=== PATIENT | female | born 1965 | race African-American/Black ===

== ENCOUNTER 2018-04-07 14:08 | Emergency (ER) | payer OTHER ==
[~2018-04-07] VITALS: Ht 162.6 cm; Wt 90.3 kg
[~2018-04-07 14:08] MED LIST: ERYTHROMYCIN E3.5 G1 OPHTHALMIC; HYDROCHLOROTHIA25 M1 PO; IBUPROFEN 600600 M1 PO; IBUPROFEN 800800 MG PO; IRON SUPPLEMEN325 MG PO; LISINOPRIL; NORCO 5-325 TA1 EACH PO
[2018-04-07] MEDS ORDERED: VITAMIN D50000 UNIT PO (14:21)
[2018-04-07] MEDS ORDERED: IBUPROFEN 600600 M1 PO (15:08)
[2018-04-07 15:50] VITALS: BP 167/105
== END 2018-04-07 15:52 | disposition home or self-care (01) ==
LOC: ER 14:08
DX: S90.121A Contusion of right lesser toe(s) without damage to nail, initial encounter (principal); I10 Essential (primary) hypertension; W23.0XXA Caught, crushed, jammed, or pinched between moving objects, initial encounter; Y93.89 Activity, other specified; Y92.89 Other specified places as the place of occurrence of the external cause; Y99.8 Other external cause status

== ENCOUNTER 2019-07-19 17:40 | Emergency (ER) | payer OTHER ==
[~2019-07-19] VITALS: Ht 162.6 cm; Wt 86.2 kg
[~2019-07-19 17:40] MED LIST changes: +VITAMIN D50000 UNIT PO
[2019-07-19 18:50] LABS: ABSOLUTE NEUTROPHILS 2.9 thou/uL (1.4-8.2); BASOPHILS 1.1 % (0.0-2.0); EOSINOPHILS 0.9 % (0.0-3.0); HEMOGLOBIN 12.4 gm/dL (12.0-15.0); LYMPHOCYTES 39.1 % (24.0-44.0); MCH 28.3 pg (26.0-34.0); MCHC 32.5 g/dL (28.0-37.0); MCV 87.1 fL (80.0-100.0); MONOCYTES 8.1 % (1.0-8.0); PLATELET COUNT 252 thou/uL (150-400); POLYS 50.8 % (36.0-66.0); RBC 4.37 mil/uL (4.20-5.00); RDW 14.5 % (10.5-14.5); WBC 5.7 thou/uL (4.0-11.0)
[2019-07-19 18:58] LABS: CALCIUM 9.1 mg/dL (8.5-10.1); CREATININE 0.9 mg/dL (0.6-1.0); POTASSIUM 3.9 mmol/L (3.5-5.1)
[2019-07-19 19:04] LABS: ALBUMIN 3.9 g/dL (3.4-5.0); TOTAL BILIRUBIN 0.3 mg/dL (<0.1-1.0); TOTAL PROTEIN 8.1 g/dL (6.4-8.2)
[2019-07-19 19:17] LABS: URINE BILIRUBIN NEGATIVE (Negative); URINE BLOOD NEGATIVE (Negative); URINE CLARITY CLOUDY; URINE COLOR YELLOW; URINE GLUCOSE-RANDOM* NEGATIVE (Negative); URINE KETONES NEGATIVE (Negative); URINE NITRITE-REFLEX NEGATIVE (Negative); URINE PROTEIN (DIPSTICK) NEGATIVE (Negative); URINE SPECIFIC GRAVITY >= 1.030 (1.005-1.035)
[2019-07-19 19:22] LABS: CASTS None Seen /LPF (None Seen); MUCUS 0-3 Light strn/LPF (None Seen); URINE LEUKOCYTES-REFLEX 1+ (Negative); URINE WBC-REFLEX 6-15 Few /HPF (0-5)
[2019-07-19 19:23] LABS: AMORPHOUS URATES Many /LPF (None Seen); BACTERIA-REFLEX None Seen /HPF (None Seen); CRYSTALS None Seen /LPF (None Seen); SQUAMOUS 0-3 Few /LPF (0-3); URINE RBC None Seen /HPF (0-2)
[2019-07-19] MEDS ORDERED: MACROBID 100 M100 M2 PO (21:05)
[2019-07-19 21:17] VITALS: BP 130/91
[2019-07-19] MEDS ORDERED: PHENAZOPYRIDIN200 M2 PO (22:02)
== END 2019-07-19 22:09 | disposition home or self-care (01) ==
LOC: ER 17:40
PROVIDERS: Emergency Medicine
DX: N30.00 Acute cystitis without hematuria (principal); R19.7 Diarrhea, unspecified; I10 Essential (primary) hypertension; Z90.49 Acquired absence of other specified parts of digestive tract

== ENCOUNTER 2019-11-02 12:57 | Emergency (ER) | payer OTHER ==
[~2019-11-02] VITALS: Ht 162.6 cm; Wt 83.9 kg
[~2019-11-02 12:57] MED LIST changes: +MACROBID 100 M100 M2 PO; +PHENAZOPYRIDIN200 M2 PO
[2019-11-02] MEDS ORDERED: LISINOPRIL2.5 MG PO (13:00)
[2019-11-02] MEDS ORDERED: MOBIC7.5 MG PO (13:52)
[2019-11-02 14:04] VITALS: BP 145/78
== END 2019-11-02 14:05 | disposition home or self-care (01) ==
LOC: ER 12:57
DX: S86.812A Strain of other muscle(s) and tendon(s) at lower leg level, left leg, initial encounter (principal); I10 Essential (primary) hypertension; Z90.49 Acquired absence of other specified parts of digestive tract; W18.39XA Other fall on same level, initial encounter; Y93.89 Activity, other specified; Y92.89 Other specified places as the place of occurrence of the external cause; Y99.8 Other external cause status

== ENCOUNTER 2020-08-31 23:06 | Emergency (ER) | payer OTHER ==
[~2020-08-31] VITALS: Ht 162.6 cm; Wt 81.7 kg
[~2020-08-31 23:06] MED LIST changes: +LISINOPRIL2.5 MG PO; +MOBIC7.5 MG PO
[2020-08-31 23:42] LABS: ABSOLUTE NEUTROPHILS 3.1 thou/uL (1.4-8.2); BASOPHILS 0.9 % (0.0-2.0); EOSINOPHILS 1.1 % (0.0-3.0); HEMATOCRIT 37.1 % (37.0-47.0); HEMOGLOBIN 11.9 gm/dL (12.0-15.0); LYMPHOCYTES 40.7 % (24.0-44.0); MCH 28.4 pg (26.0-34.0); MCHC 31.9 g/dL (28.0-37.0); MCV 88.9 fL (80.0-100.0); MONOCYTES 7.2 % (1.0-8.0); PLATELET COUNT 227 thou/uL (150-400); POLYS 50.1 % (36.0-66.0); RBC 4.17 mil/uL (4.20-5.00); RDW 14.9 % (10.5-14.5); WBC 6.1 thou/uL (4.0-11.0)
[2020-08-31 23:51] LABS: ANION GAP 12 mmol/L (7-16); BUN 14 mg/dL (7-18); CALCIUM 9.1 mg/dL (8.5-10.1); CHLORIDE 105 mmol/L (98-107); CO2 26 mmol/L (21-32); CREATININE 0.9 mg/dL (0.6-1.0); GLUCOSE 96 mg/dL (74-106); POTASSIUM 3.4 mmol/L (3.5-5.1); SODIUM 143 mmol/L (136-145)
[2020-08-31 23:57] LABS: TROPONIN-I <0.06 ng/mL (<0.06)
[2020-09-01 02:33] VITALS: BP 141/76
--- NOTE | 2020-09-02 07:48 | EKG ---
[facility] [place] [address] ELECTROCARDIOGRAM REPORT Name: HAYES SANTIAGO Room #: [facility]#: [id number] Admission: 08/31/20 Attend Phys: Discharge: 09/01/20 Date of : 61 Report #: [id number] THIS REPORT FOR: cc: Physician not on staff Physician not on staff Herberth Iverson MD [facility] ~ THIS REPORT FOR: //name// 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
== END 2020-09-01 02:45 | disposition home or self-care (01) ==
LOC: ER 23:06
PROVIDERS: Emergency Medicine
DX: R07.89 Other chest pain (principal); M25.511 Pain in right shoulder; R10.9 Unspecified abdominal pain; I10 Essential (primary) hypertension; Z90.49 Acquired absence of other specified parts of digestive tract; Z79.899 Other long term (current) drug therapy

== ENCOUNTER 2020-09-02 10:45 | Emergency (ER) | payer OTHER ==
[~2020-09-02] VITALS: Ht 162.6 cm; Wt 81.7 kg
[2020-09-02 11:31] LABS: ABSOLUTE NEUTROPHILS 2.5 thou/uL (1.4-8.2); EOSINOPHILS 0.9 % (0.0-3.0); HEMATOCRIT 37.7 % (37.0-47.0); HEMOGLOBIN 12.1 gm/dL (12.0-15.0); MCH 28.5 pg (26.0-34.0); MCHC 32.2 g/dL (28.0-37.0); MCV 88.6 fL (80.0-100.0); MONOCYTES 6.7 % (1.0-8.0); PLATELET COUNT 233 thou/uL (150-400); POLYS 52.4 % (36.0-66.0); RBC 4.25 mil/uL (4.20-5.00); RDW 14.8 % (10.5-14.5); WBC 4.7 thou/uL (4.0-11.0)
[2020-09-02 11:35] LABS: ANION GAP 10 mmol/L (7-16); BUN 13 mg/dL (7-18); CALCIUM 9.4 mg/dL (8.5-10.1); CHLORIDE 105 mmol/L (98-107); CO2 29 mmol/L (21-32); CREATININE 0.9 mg/dL (0.6-1.0); GLUCOSE 102 mg/dL (74-106); POTASSIUM 3.7 mmol/L (3.5-5.1); SODIUM 144 mmol/L (136-145)
[2020-09-02 11:46] LABS: ALBUMIN 3.9 g/dL (3.4-5.0); SGOT 12 U/L (15-37); SGPT 12 U/L (30-65); TOTAL BILIRUBIN 0.5 mg/dL (0.2-1.0); TROPONIN-I <0.06 ng/mL (<0.06)
--- NOTE | 2020-09-02 12:29 | EKG ---
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
[2020-09-02 14:02] VITALS: BP 150/82
== END 2020-09-02 14:10 | disposition home or self-care (01) ==
LOC: ER 10:45
PROVIDERS: Emergency Medicine
DX: R07.9 Chest pain, unspecified (principal); I10 Essential (primary) hypertension; Z90.49 Acquired absence of other specified parts of digestive tract; Z79.899 Other long term (current) drug therapy

== ENCOUNTER 2020-10-15 16:55 | Emergency (ER) | payer OTHER ==
[~2020-10-15] VITALS: Ht 162.6 cm; Wt 83.0 kg
[2020-10-15 17:11] VITALS: BP 146/85
[2020-10-15] MEDS ORDERED: NAPROSYN500 MG PO (17:56)
[2020-10-15] MEDS ORDERED: NORFLEX100 MG PO (17:56)
[2020-10-15 18:14] LABS: URINE BILIRUBIN NEGATIVE (Negative); URINE BLOOD NEGATIVE (Negative); URINE CLARITY CLEAR; URINE COLOR YELLOW; URINE GLUCOSE-RANDOM* NEGATIVE (Negative); URINE KETONES NEGATIVE (Negative); URINE NITRITE-REFLEX NEGATIVE (Negative); URINE PROTEIN (DIPSTICK) NEGATIVE (Negative); URINE SPECIFIC GRAVITY >= 1.030 (1.005-1.035); URINE UROBILINOGEN 0.2 E.U./dl (0.2-1.0)
[2020-10-15 18:16] LABS: URINE LEUKOCYTES-REFLEX 2+ (Negative)
[2020-10-15 18:28] LABS: SQUAMOUS 0-3 Few /LPF (0-3); URINE RBC None Seen /HPF (0-2); URINE WBC-REFLEX 6-15 Few /HPF (0-5)
[2020-10-15 18:29] LABS: BACTERIA-REFLEX 1-9 Few /HPF (None Seen); CASTS None Seen /LPF (None Seen); CRYSTALS None Seen /LPF (None Seen)
== END 2020-10-15 18:43 | disposition home or self-care (01) ==
LOC: ER 16:55
PROVIDERS: Physician Assistant
DX: S13.4XXA Sprain of ligaments of cervical spine, initial encounter (principal); R07.89 Other chest pain; M54.9 Dorsalgia, unspecified; I10 Essential (primary) hypertension; Z90.49 Acquired absence of other specified parts of digestive tract; Z79.899 Other long term (current) drug therapy; V49.9XXA Car occupant (driver) (passenger) injured in unspecified traffic accident, initial encounter; Y93.89 Activity, other specified; Y92.89 Other specified places as the place of occurrence of the external cause; Y99.8 Other external cause status

== ENCOUNTER → 2020-10-21 | Outpatient (CLI) | payer OTHER ==
[~2020-10-21] MED LIST changes: +NAPROSYN500 MG PO; +NORFLEX100 MG PO
== END ==
LOC: SJCVCIMAG 10-14 08:22
PROVIDERS: ATTEND Internal Medicine
DX: R07.9 Chest pain, unspecified (principal); E78.5 Hyperlipidemia, unspecified

== ENCOUNTER 2020-12-24 22:49 | Emergency (ER) | payer OTHER ==
[~2020-12-24] VITALS: Ht 162.6 cm; Wt 81.2 kg
[2020-12-24 22:54] VITALS: BP 151/103
== END 2020-12-25 00:57 | disposition home or self-care (01) ==
LOC: ER 22:49
DX: T14.8XXA Other injury of unspecified body region, initial encounter (principal); E04.1 Nontoxic single thyroid nodule; I10 Essential (primary) hypertension; Z90.49 Acquired absence of other specified parts of digestive tract; Z79.899 Other long term (current) drug therapy; Y04.2XXA Assault by strike against or bumped into by another person, initial encounter; Y93.89 Activity, other specified; Y92.89 Other specified places as the place of occurrence of the external cause; Y99.8 Other external cause status

== ENCOUNTER 2021-05-10 19:00 | Emergency (ER) | payer OTHER ==
[~2021-05-10] VITALS: Ht 165.1 cm; Wt 83.9 kg
[2021-05-10 20:27] LABS: CALCIUM 8.8 mg/dL (8.5-10.1); CREATININE 0.9 mg/dL (0.6-1.0); POTASSIUM 3.6 mmol/L (3.5-5.1)
[2021-05-10 20:29] LABS: ABSOLUTE NEUTROPHILS 2.4 thou/uL (1.4-8.2); BASOPHILS 1.1 % (0.0-2.0); EOSINOPHILS 0.2 % (0.0-3.0); LYMPHOCYTES 18.1 % (24.0-44.0); MCH 29.4 pg (26.0-34.0); MCHC 33.3 g/dL (28.0-37.0); MCV 88.1 fL (80.0-100.0); MONOCYTES 15.9 % (1.0-8.0); PLATELET COUNT 166 thou/uL (150-400); POLYS 64.7 % (36.0-66.0); RBC 4.09 mil/uL (4.20-5.00); RDW 14.4 % (10.5-14.5); WBC 3.8 thou/uL (4.0-11.0)
[2021-05-10 20:59] VITALS: BP 200/100
[2021-05-10 21:22] LABS: LARGE PLATELETS OCCASIONAL
== END 2021-05-10 21:01 | disposition home or self-care (01) ==
LOC: ER 19:00
PROVIDERS: Emergency Medicine
DX: U07.1 COVID-19 (principal); I10 Essential (primary) hypertension; Z90.89 Acquired absence of other organs

== ENCOUNTER 2021-05-15 22:20 | Emergency (ER) | payer OTHER ==
[~2021-05-15] VITALS: Ht 170.2 cm; Wt 72.6 kg
[2021-05-15 23:01] LABS: ABSOLUTE NEUTROPHILS 1.9 thou/uL (1.4-8.2); BASOPHILS 0.6 % (0.0-2.0); HEMATOCRIT 39.7 % (37.0-47.0); LYMPHOCYTES 29.4 % (24.0-44.0); MCH 28.4 pg (26.0-34.0); MCHC 32.7 g/dL (28.0-37.0); MCV 86.9 fL (80.0-100.0); MONOCYTES 10.4 % (1.0-8.0); PLATELET COUNT 157 thou/uL (150-400); POLYS 59.6 % (36.0-66.0); RBC 4.57 mil/uL (4.20-5.00); RDW 13.8 % (10.5-14.5); WBC 3.2 thou/uL (4.0-11.0)
[2021-05-15 23:06] LABS: ANION GAP 12 mmol/L (7-16); BUN 10 mg/dL (7-18); CALCIUM 8.5 mg/dL (8.5-10.1); CHLORIDE 96 mmol/L (98-107); CO2 27 mmol/L (21-32); CREATININE 1.1 mg/dL (0.6-1.0); GLUCOSE 108 mg/dL (74-106); POTASSIUM 3.5 mmol/L (3.5-5.1); SODIUM 135 mmol/L (136-145)
[2021-05-15 23:16] LABS: ALBUMIN 3.7 g/dL (3.4-5.0); SGOT 36 U/L (15-37); SGPT 29 U/L (14-59); TOTAL BILIRUBIN 0.3 mg/dL (0.2-1.0); TOTAL PROTEIN 7.8 g/dL (6.4-8.2); TROPONIN-I <0.06 ng/mL (<0.06)
[2021-05-16 02:09] LABS: URINE BILIRUBIN 1+ (Negative); URINE BLOOD NEGATIVE (Negative); URINE CLARITY CLEAR; URINE COLOR YELLOW; URINE GLUCOSE-RANDOM* NEGATIVE (Negative); URINE KETONES 2+ (Negative); URINE NITRITE-REFLEX NEGATIVE (Negative); URINE PROTEIN (DIPSTICK) TRACE (Negative)
[2021-05-16 02:10] LABS: URINE LEUKOCYTES-REFLEX 2+ (Negative)
[2021-05-16 02:33] LABS: CRYSTALS None Seen /LPF (None Seen); HYALINE CASTS 0-3 Few /LPF (None Seen); MUCUS 4-6 Moderate strn/LPF (None Seen); SQUAMOUS 4-10 Moderate /LPF (0-3); URINE RBC 1-2 Rare /HPF (NONE SEEN); URINE WBC-REFLEX 6-15 Few /HPF (0-5)
[2021-05-16] MEDS ORDERED: CEPHALEXIN 250250 M1 PO (04:13)
[2021-05-16] MEDS ORDERED: PHENERGAN 25 MG25 M1 PO (04:13)
[2021-05-16 05:23] VITALS: BP 125/80
--- NOTE | 2021-05-16 07:11 | EKG ---
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: : 1965 Requested By: Kay Nunez Order Number: [id number] MD: Tyler Clancy Measurements Intervals [place] Rate: 86 P: 40 [place]: 143 QRS: 26 QRSD: 90 T: 25 QT: 386 QTc: 462 Interpretive Statements Sinus rhythm Probable left atrial enlargement Borderline T abnormalities, anterior leads Compared to ECG 09/02/2020 11:51:49 T-wave abnormality now present Electronically Signed On 05-16-2021 7:11:41 CDT by Tyler Clancy [email or web address] <ELECTRONICALLY SIGNED> By: Tyler Clancy MD, [facility] 05/16/21 0711 [id number] [id number] Tyler Clancy MD, FACC /EPI
== END 2021-05-16 06:12 | disposition home or self-care (01) ==
LOC: ER 22:20
PROVIDERS: Emergency Medicine
DX: U07.1 COVID-19 (principal); N39.0 Urinary tract infection, site not specified; I10 Essential (primary) hypertension; Z79.899 Other long term (current) drug therapy; Z90.89 Acquired absence of other organs